=== PATIENT | male | born 1950 | race Hispanic/Latino ===

== ENCOUNTER 2018-11-30 02:40 | Inpatient (IN) | payer MEDICARE ==
[2018-11-30 02:49] VITALS: BMI 16.7
[2018-11-30 03:15] LABS: BASO # 0.1 K/uL (0.0-0.2); BASO % 0.4 % (0.0-2.0); EOS # 0.1 K/uL (0.0-0.7); EOS % 0.6 % (0.0-4.0); HEMOGLOBIN 12.2 g/dL (12.0-18.0); LYMPH % 5.7 % (20.0-40.0); MEAN CELL VOLUME 102.1 fl (80.0-94.0); MEAN CORPUSCULAR HEMOGLOBIN 33.3 pg (27.0-31.0); MEAN CORPUSCULAR HGB CONC 32.6 g/dL (33.0-37.0); MEAN PLATELET VOLUME 7.4 fl (7.2-11.7); MONO # 0.8 K/uL (0.0-0.8); MONO % 4.5 % (0.0-10.0); NEUT # 15.3 K/uL (1.8-7.0); NEUT % 88.8 % (50.0-75.0); PLATELET COUNT 419 K/uL (130-400); RBC 3.67 Mil/uL (4.40-5.90); RED CELL DISTRIBUTION WIDTH 16.3 % (11.5-14.5); WHITE BLOOD COUNT 17.3 K/uL (4.8-10.8)
[2018-11-30 03:17] LABS: INR 1.1; PROTHROMBIN TIME 12.6 Seconds (9.8-13.1)
[2018-11-30 03:19] LABS: PARTIAL THROMBOPLASTIN TIME 36.1 Seconds (25.6-37.1)
[2018-11-30 03:22] LABS: ALB/GLOB RATIO 1.2 (1.0-2.1); ALBUMIN 4.5 g/dL (3.5-5.0); CALCIUM 10.6 mg/dL (8.4-10.2)
[2018-11-30 03:33] LABS: TROPONIN I 0.017 ng/mL (0.00-0.120)
--- NOTE | 2018-11-30 03:39 | ED PDOC ---
HPI: SOB/CHF/COPD Time Seen by Provider: 11/30/18 02:47 Chief Complaint (Nursing): Respiratory Distress Chief Complaint (Provider): Respiratory Distress History Per: Patient History/Exam Limitations: no limitations Onset/Duration Of Symptoms: Sudden Onset Current Symptoms Are (Timing): Better Additional History Per: EMS Additional Complaint(s): 68 year old male with history of HTN and end stage renal disease who receives dialysis every Thursday, and Thursday presents to the ED complaining of acute shortness of breath at home prior to arrival. Patient was brought to the ED via EMS ALS transport who administered Lasix 20mg IVP and four sublingual nitroglycerine as well as placed on CPAP/BIPAP. Upon arrival, patient's symptoms improved and he is currently speaking full sentences in the ED. Patient is also due for dialysis today. PMD: Dr. Sanz Nephrologists: Dr. Zuniga Past Medical History Reviewed: Historical Data, Nursing Documentation, Vital Signs Vital Signs: Last Vital Signs Temp 97.9 F 11/30/18 03:07 Pulse 93 H 11/30/18 03:03 Resp 24 11/30/18 02:49 BP 129/75 11/30/18 02:49 Pulse Ox 98 11/30/18 02:49 - Medical History PMH: Diabetes, HTN, End Stage Renal Disease, Chronic Kidney Disease Denies: HIV - Family History Family History: States: Unknown Family Hx - Home Medications Home Medications: Ambulatory Orders Medication Instructions Recorded Lisinopril [Zestril] 30 mg PO DAILY 10/11/16 amLODIPine [Norvasc] 10 mg PO DAILY 10/11/16 hydrALAZINE [Apresoline] 50 mg PO TID 10/11/16 Brimonidine Tartrate/Timolol 07/22/17 [Combigan 0.2%-0.5% Eye Drops] Latanoprost 0.005% Opht [Xalatan 07/22/17 Opht] Metoprolol Succinate XL [Toprol XL] 25 mg PO DAILY #30 tab 07/28/17 - Allergies Allergies/Adverse Reactions: Allergies Allergy/AdvReac Type Severity Reaction Status Date / Time No Known Allergies Allergy Verified 11/30/18 02:49 Review of Systems ROS Statement: Except As Marked, All Systems Reviewed And Found Negative Constitutional: Negative for: Fever Cardiovascular: Negative for: Chest Pain Respiratory: Positive for: Shortness of Breath Gastrointestinal: Negative for: Nausea, Vomiting, Abdominal Pain, Diarrhea Physical Exam - Reviewed Nursing Documentation Reviewed: Yes Vital Signs Reviewed: Yes - Physical Exam Appears: Positive for: In Acute Distress (mild) Head Exam: Positive for: ATRAUMATIC, NORMAL INSPECTION, NORMOCEPHALIC Skin: Positive for: Normal Color, Warm, Dry. Negative for: Rash Eye Exam: Positive for: EOMI, Normal appearance, PERRL ENT: Positive for: Normal ENT Inspection Neck: Positive for: Painless ROM Cardiovascular/Chest: Positive for: JVD (1+) Respiratory: Positive for: Rales (bilateral) Gastrointestinal/Abdominal: Positive for: Normal Exam, Soft. Negative for: Tenderness Back: Positive for: Normal Inspection Extremity: Positive for: Normal ROM. Negative for: Tenderness, Pedal Edema, Deformity Neurological/Psych: Positive for: Awake, Alert, Normal Tone, Oriented (x3) - Laboratory Results Result Diagrams: 11/30/18 03:03 11/30/18 03:03 Lab Results: PT 12.6 Seconds (9.8-13.1) 11/30/18 03:03 INR 1.1 11/30/18 03:03 APTT 36.1 Seconds (25.6-37.1) 11/30/18 03:03 Troponin I 0.0170 ng/mL (0.00-0.120) 11/30/18 03:03 Total Bilirubin 0.7 mg/dl (0.2-1.3) 11/30/18 03:03 AST 24 U/L (17-59) 11/30/18 03:03 ALT 23 U/L (21-72) 11/30/18 03:03 Alkaline Phosphatase 63 U/L (38-126) 11/30/18 03:03 Total Protein 8.3 G/DL (6.3-8.2) H 11/30/18 03:03 Albumin 4.5 g/dL (3.5-5.0) 11/30/18 03:03 Globulin 3.8 gm/dL (2.2-3.9) 11/30/18 03:03 Albumin/Globulin Ratio 1.2 (1.0-2.1) 11/30/18 03:03 - ECG O2 Sat by Pulse Oximetry: 98 Pulse Ox Interpretation: Normal - Critical Care Total Time (In Min): 30 Medical Decision Making Medical Decision Making: Time: 256 Impression: 68 year old male presents with acute CHF and respiratory failure Plan: EKG CMP Troponin CBC w/ differential PTT Prothrombin time BIPAP/ CPAP setting adjustment Influenza A/B 5: Patient to be admitted for ESRD, acute CHF and respiratory failure under Dr. Sanz as well as Dr. Zuniga [id number]: Labs reviewed and revealed no clinically significant abnormalities with exception of leukocytes with left shift. CXR: bilateral pulmonary vascular congestion, cardiomegaly, as read by Dr. Thony dawson. Patient given IVPB Rocephin and Zithomax 500mg with possible underlying pneumonia. Patient diagnosed with CHF, pneumonia and respiratory failure. Scribe Attestation: Documented by Frederic Hammond, acting as a scribe for Cain Dill MD Provider Scribe Attestation: All medical record entries made by the Scribe were at my direction and personally dictated by me. I have reviewed the chart and agree that the record accurately reflects my personal performance of the history, physical exam, medical decision making, and the department course for this patient. I have also personally directed, reviewed, and agree with the discharge instructions and disposition. Disposition - Clinical Impression Clinical Impression: Respiratory failure, Chronic kidney disease requiring chronic dialysis, Pneumonia - Patient ED Disposition Is Patient to be Admitted: Yes Discussed With DrBrittany: Rafael Sanz (Dr Zuniga) - Disposition Disposition Time: 04:30 Condition: GUARDED - Pt Status Changed To: Hospital Disposition Of: Inpatient - Admit Certification Admit to Inpatient:: After my assessment, the patient will require hos pitalization for at least two midnights. This is because of the severity of symptoms shown, intensity of services needed, and/or the medical risk in this patient being treated as an outpatient.
[2018-11-30 04:23] LABS: BANDS 12 % (0-2); EOSINOPHIL 1 % (0-7); LYMPHOCYTE 7 % (20-50); METAMYELOCYTE 1 % (0-0); MONOCYTE 5 % (0-10); NEUTROPHIL 74 % (42-75); TOTAL CELLS COUNTED 100
[2018-11-30 04:25] LABS: ANISOCYTOSIS SLIGHT; PLATELET ESTIMATE SLIGHTLY INCREASED (NORMAL)
[2018-11-30] MEDS ORDERED: Azithromycin 500 MG in Sodium Chloride 0.9% 250 ML IVPB STA (04:25)
[2018-11-30 04:27] LABS: GIANT PLATELETS PRESENT; TOXIC GRANULATION PRESENT
[2018-11-30] MEDS ORDERED: cefTRIAXone (Rocephin) 1 gm Inj ONE (05:07)
--- NOTE | 2018-11-30 08:56 | CARD ---
APPROVED REPORT Date of service: 11/30/2018 EKG Measurement Heart [id number] <Conclusion> Normal sinus rhythm Possible Left atrial enlargement Incomplete left bundle branch block Left ventricular hypertrophy with repolarization abnormality Abnormal ECG
--- NOTE | 2018-11-30 11:38 | CP.PCM.CON ---
History of Present Illness - History of Present Illness History of Present Illness: 68 years of age male known to me with end-stage renal disease on maintenance hemodialysis 3 times a week Thursday. He came to the emergency room complaining of shortness of breath difficulty breathing and he required to be given Lasix and oxygen management in the emergency room and improved somewhat and he is scheduled for dialysis this morning as well because that is his regular day. His past medical history related to also long history of hypertension and chronic end-stage renal disease on dialysis and patient has secondary hyperparathyroidism and hyperphosphatemia. In summary past his past medical history End-stage renal disease on dialysis TTS Hyperphosphatemia and secondary hyperparathyroidism Medications reviewed Social history not contributory Review of Systems - Review of Systems Systems not reviewed;Unavailable: Respiratory Distress - Constitutional Constitutional: Anorexia, Chills - EENT Eyes: Blurred Vision Nose/Mouth/Throat: absent: Epistaxis - Cardiovascular Cardiovascular: Dyspnea, Orthopnea. absent: Acrocyanosis - Respiratory Respiratory: absent: Hemoptysis - Gastrointestinal Gastrointestinal: absent: Abdominal Pain, Coffee Ground Emesis, Vomiting - Genitourinary Genitourinary: Nocturia - Musculoskeletal Musculoskeletal: Muscle Weakness - Integumentary Integumentary: Dry Skin - Neurological Neurological: absent: Confusion, Focal Weakness, Headaches - Psychiatric Psychiatric: Depression. 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) Hx Cataracts: Yes - RENAL Hx Chronic Kidney Disease: Yes - ENDOCRINE/METABOLIC Hx Endocrine Disorders: Yes - HEMATOLOGICAL/ONCOLOGICAL Hx Human Immunodeficiency Virus (HIV): No - INTEGUMENTARY Hx Dermatological Problems: No - MUSCULOSKELETAL/RHEUMATOLOGICAL Hx Musculoskeletal Disorders: Yes Hx Falls: Yes (> 1 year ago) - GASTROINTESTINAL Hx Gastrointestinal Disorders: No - GENITOURINARY/GYNECOLOGICAL Hx Genitourinary Disorders: Yes Hx Hematuria: Yes Hx Urinary Tract Infection: Yes - PSYCHIATRIC Hx Psychophysiologic Disorder: No Hx Substance Use: No - SURGICAL HISTORY Hx Surgeries: Yes Hx Vascular Access Device: Yes Other/Comment: CATARACT SURGERY - ANESTHESIA Hx Anesthesia: Yes Hx Anesthesia Reactions: No Hx Malignant Hyperthermia: No Meds Allergies/Adverse Reactions: Allergies Allergy/AdvReac Type Severity Reaction Status Date / Time No Known Allergies Allergy Verified 11/30/18 02:49 - Medications Medications: Current Medications Amlodipine Besylate (Norvasc) 10 mg PO DAILY [facility] Hydralazine HCl (Apresoline) 50 mg PO TID [facility] Azithromycin 500 mg/ Sodium (Chloride) 250 mls @ 250 mls/hr IVPB DAILY [facility]; Protocol Ceftriaxone Sodium 1 gm/ (Sodium Chloride) 100 mls @ 100 mls/hr IVPB DAILY [facility]; Protocol Lisinopril (Zestril) 30 mg PO DAILY [facility] Metoprolol Succinate (Toprol Xl) 25 mg PO DAILY [facility] Physical Exam - Constitutional Additional comments: mild acute distress - Eye Exam Eye Exam: Conjunctival injection - ENT Exam ENT Exam: Mucous Membranes Moist - Neck Exam Neck exam: Negative for: Lymphadenopathy - Respiratory Exam Respiratory Exam: Rales, Rhonchi. absent: Chest Wall Tenderness - Cardiovascular Exam Cardiovascular Exam: absent: Gallop, JVD, Rubs - GI/Abdominal Exam GI & Abdominal Exam: absent: Guarding - Extremities Exam Extremities exam: Negative for: calf tenderness - Back Exam Back exam: absent: CVA tenderness (L), CVA tenderness (R) - Neurological Exam Neurological exam: Alert Results - Vital Signs Recent Vital Signs: Last Vital Signs Temp 97.4 F L 11/30/18 07:55 Pulse 70 11/30/18 07:58 Resp 18 11/30/18 07:55 BP 163/70 H 11/30/18 07:55 Pulse Ox 100 11/30/18 07:55 - Labs Result Diagrams: 11/30/18 03:03 11/30/18 03:03 Labs: Laboratory Results - last 24 hr 11/30/18 11/30/18 11/30/18 03:03 03:03 03:03 WBC 17.3 H D RBC 3.67 L Hgb 12.2 D Hct 37.4 MCV 102.1 H D MCH 33.3 H MCHC 32.6 L RDW 16.3 H Plt Count 419 H D MPV 7.4 Neut % (Auto) 88.8 H Lymph % (Auto) 5.7 L [place] % (Auto) 4.5 Eos % (Auto) 0.6 Baso % (Auto) 0.4 Neut # (Auto) 15.3 H Lymph # (Auto) 1.0 [place] # (Auto) 0.8 Eos # (Auto) 0.1 Baso # (Auto) 0.1 Neutrophils % (Manual) 74 Band Neutrophils % 12 H* Lymphocytes % (Manual) 7 L Monocytes % (Manual) 5 Eosinophils % (Manual) 1 Metamyelocytes % 1 H Toxic Granulation Present Platelet Estimate Slightly increased H Giant Platelets Present Anisocytosis (manual) Slight Macrocytosis (manual) Slight PT 12.6 INR 1.1 APTT 36.1 Sodium 137 Potassium 4.3 Chloride 95 L Carbon Dioxide 24 Anion Gap 22 H BUN 58 H Creatinine 5.7 H Est GFR ( Amer) 12 Est GFR (Non-Af Amer) 10 Random Glucose 231 H Calcium 10.6 H Total Bilirubin 0.7 AST 24 ALT 23 Alkaline Phosphatase 63 Troponin I 0.0170 Total Protein 8.3 H Albumin 4.5 Globulin 3.8 Albumin/Globulin Ratio 1.2 Influenza Typ A,B (EIA) 11/30/18 03:03 WBC RBC Hgb Hct MCV MCH MCHC RDW Plt Count MPV Neut % (Auto) Lymph % (Auto) [place] % (Auto) Eos % (Auto) Baso % (Auto) Neut # (Auto) Lymph # (Auto) [place] # (Auto) Eos # (Auto) Baso # (Auto) Neutrophils % (Manual) Band Neutrophils % Lymphocytes % (Manual) Monocytes % (Manual) Eosinophils % (Manual) Metamyelocytes % Toxic Granulation Platelet Estimate Giant Platelets Anisocytosis (manual) Macrocytosis (manual) PT INR APTT Sodium Potassium Chloride Carbon Dioxide Anion Gap BUN Creatinine Est GFR ( Amer) Est GFR (Non-Af Amer) Random Glucose Calcium Total Bilirubin AST ALT Alkaline Phosphatase Troponin I Total Protein Albumin Globulin Albumin/Globulin Ratio Influenza Typ A,B (EIA) Negative for flu a/b Assessment & Plan (1) Pneumonia Status: Acute (2) Chronic kidney disease requiring chronic dialysis Assessment and Plan: End-stage renal disease admitted with what appeared to be some volume overloaded and pneumonia. Pneumonia Leukocytosis Secondary hyperparathyroidism Hyperphosphatemia My recommendation Continue hemodialysis started earlier Phosphorus binder Calcitriol Antibiotics considering GFR Oxygen Renal diet Status: Chronic
--- NOTE | 2018-11-30 11:47 | CP.PCM.PN ---
Subjective - Date & Time of Evaluation Date of Evaluation: 11/30/18 Time of Evaluation: 11:43 - Subjective Subjective: dialysis note He was seen on hemodialysis now. Dialysis nurse at the bedside. I discussed the order with the dialysis nurse. Ultrafiltration approximately 2500 cc Potassium bath 2 mEq Patient receiving oxygen by mask And he started to show some improvement throughout the dialysis. Objective - Vital Signs/Intake and Output Vital Signs (last 24 hours): Temp Pulse Resp BP Pulse Ox 97.4 F L 70 18 163/70 H 100 11/30/18 07:55 11/30/18 07:58 11/30/18 07:55 11/30/18 07:55 11/30/18 07:55 - Medications Medications: Current Medications Amlodipine Besylate (Norvasc) 10 mg PO DAILY [facility] Hydralazine HCl (Apresoline) 50 mg PO TID [facility] Azithromycin 500 mg/ Sodium (Chloride) 250 mls @ 250 mls/hr IVPB DAILY [facility]; Protocol Ceftriaxone Sodium 1 gm/ (Sodium Chloride) 100 mls @ 100 mls/hr IVPB DAILY [facility]; Protocol Lisinopril (Zestril) 30 mg PO DAILY [facility] Metoprolol Succinate (Toprol Xl) 25 mg PO DAILY [facility] - Labs Labs: 11/30/18 03:03 11/30/18 03:03 PT 12.6 Seconds (9.8-13.1) 11/30/18 03:03 INR 1.1 11/30/18 03:03 APTT 36.1 Seconds (25.6-37.1) 11/30/18 03:03 - Constitutional Appears: No Acute Distress - Eye Exam Eye Exam: Conjunctival injection - ENT Exam ENT Exam: Mucous Membranes Moist - Neck Exam Neck Exam: absent: Lymphadenopathy - Respiratory Exam Respiratory Exam: absent: Chest Wall Tenderness - Cardiovascular Exam Cardiovascular Exam: absent: Gallop, JVD, Rubs - GI/Abdominal Exam GI & Abdominal Exam: Soft, Normal Bowel Sounds - Extremities Exam Extremities Exam: absent: Calf Tenderness - Back Exam Back Exam: absent: CVA tenderness (L), CVA tenderness (R) - Neurological Exam Neurological Exam: Alert - Psychiatric Exam Psychiatric exam: Normal Affect - Skin Skin Exam: absent: Cyanosis Assessment and Plan (1) Pneumonia Status: Acute (2) Chronic kidney disease requiring chronic dialysis Assessment & Plan: A/P End-stage renal disease seen on hemodialysis now Patient tolerating well the dialysis. I expect to improve post hemodialysis somewhat Pneumonia Volume overloaded Patient receiving antibiotics as per renal dose Continue phosphorus binders and calcitriol We will follow-up with serum phosphorus and PTH Status: Chronic
--- NOTE | 2018-11-30 15:16 | RAD ---
Date of service: 11/30/2018 HISTORY: Chest pain. Respiratory distress. COMPARISON: 07/22/2017 FINDINGS: LUNGS: Multifocal infiltrates primarily right upper lobe, left upper and left lower lobes. These are new findings. PLEURA: Small bilateral pleural effusions not seen previously. CARDIOVASCULAR: Atherosclerotic calcifications identified primarily aortic arch. No radiographic findings to suggest acute or significant cardiovascular disease. OSSEOUS STRUCTURES: No significant abnormalities. VISUALIZED UPPER ABDOMEN: Normal. OTHER FINDINGS: None. IMPRESSION: New and bilateral multifocal infiltrates with associated small pleural effusions.
[2018-11-30 16:56] LABS: HEPATITIS B SURFACE AG Negative (NEGATIVE)
[2018-11-30 17:01] LABS: HEPATITIS B CORE AB NEGATIVE (NEGATIVE)
[2018-11-30] MEDS: Metoprolol Succinate 25 mg XL Tab PO SCH (17:02)
[2018-11-30] MEDS: Azithromycin 500 MG in Sodium Chloride 0.9% 250 ML IVPB SCH (17:03)
[2018-11-30 18:33] LABS: HEPATITIS C ANTIBODY NEGATIVE (NEGATIVE)
[2018-12-01 05:53] LABS: BASO % 0.4 % (0.0-2.0); EOS # 0.1 K/uL (0.0-0.7); EOS % 1.5 % (0.0-4.0); LYMPH # 0.7 K/uL (1.0-4.3); LYMPH % 10.8 % (20.0-40.0); MEAN CELL VOLUME 102.4 fl (80.0-94.0); MEAN CORPUSCULAR HEMOGLOBIN 34.5 pg (27.0-31.0); MEAN CORPUSCULAR HGB CONC 33.7 g/dL (33.0-37.0); MEAN PLATELET VOLUME 7.4 fl (7.2-11.7); MONO # 0.7 K/uL (0.0-0.8); MONO % 10.8 % (0.0-10.0); NEUT # 5.1 K/uL (1.8-7.0); NEUT % 76.5 % (50.0-75.0); NRBC % 0.1 % (0.0-0.0); RBC 3.19 Mil/uL (4.40-5.90); RED CELL DISTRIBUTION WIDTH 16.2 % (11.5-14.5)
[2018-12-01 06:06] LABS: WHITE BLOOD COUNT 6.6 K/uL (4.8-10.8)
[2018-12-01 06:27] LABS: ALB/GLOB RATIO 1.2 (1.0-2.1); ALBUMIN 4.1 g/dL (3.5-5.0); CALCIUM 9.5 mg/dL (8.4-10.2)
[2018-12-01] MEDS ORDERED: Sodium Chloride 3% for Inhalation 4 ML VIAL.NEB IH PRN (08:43)
[2018-12-01] MEDS: Metoprolol Succinate 25 mg XL Tab PO SCH (08:49)
[2018-12-01] MEDS ORDERED: Sod Polystyrene Sulf 15 gm/60 ml Susp PO ONE (11:46)
--- NOTE | 2018-12-01 11:49 | CP.PCM.PN ---
Subjective - Date & Time of Evaluation Date of Evaluation: 12/01/18 Time of Evaluation: 11:48 - Subjective Subjective: Patient awake and conscious feeling much better. Less shortness of breath Appetite is good Objective - Vital Signs/Intake and Output Vital Signs (last 24 hours): Temp Pulse Resp BP Pulse Ox 98.3 F 80 18 172/68 H 100 12/01/18 08:00 12/01/18 08:51 12/01/18 08:00 12/01/18 08:51 12/01/18 08:00 - Medications Medications: Current Medications Amlodipine Besylate (Norvasc) 10 mg PO DAILY [facility] Last Admin: 12/01/18 08:50 Dose: 10 mg Heparin Sodium (Porcine) (Heparin) 5,000 units SC Q12 [facility]; Protocol Hydralazine HCl (Apresoline) 50 mg PO TID [facility] Last Admin: 12/01/18 08:46 Dose: 50 mg Azithromycin 500 mg/ Sodium (Chloride) 250 mls @ 250 mls/hr IVPB DAILY [facility]; Protocol Last Admin: 11/30/18 17:03 Dose: 250 mls/hr Ceftriaxone Sodium 1 gm/ (Sodium Chloride) 100 mls @ 100 mls/hr IVPB DAILY [facility]; Protocol Last Admin: 12/01/18 08:45 Dose: 100 mls/hr Lisinopril (Zestril) 30 mg PO DAILY [facility] Last Admin: 12/01/18 08:51 Dose: 30 mg Metoprolol Succinate (Toprol Xl) 25 mg PO DAILY [facility] Last Admin: 12/01/18 08:49 Dose: 25 mg Sodium Polystyrene Sulfonate (Kayexalate Susp) 30 gm PO ONCE ONE Stop: 12/01/18 11:47 - Labs Labs: 12/01/18 04:35 12/01/18 04:35 PT 12.6 Seconds (9.8-13.1) 11/30/18 03:03 INR 1.1 11/30/18 03:03 APTT 36.1 Seconds (25.6-37.1) 11/30/18 03:03 - Constitutional Appears: No Acute Distress - Eye Exam Eye Exam: Conjunctival injection - ENT Exam ENT Exam: Mucous Membranes Moist - Respiratory Exam Respiratory Exam: Rhonchi, NORMAL BREATHING PATTERN - Cardiovascular Exam Cardiovascular Exam: absent: Gallop, JVD, Rubs - GI/Abdominal Exam GI & Abdominal Exam: Soft, Normal Bowel Sounds - Extremities Exam Extremities Exam: absent: Calf Tenderness - Back Exam Back Exam: absent: CVA tenderness (L), CVA tenderness (R) - Neurological Exam Neurological Exam: Alert - Psychiatric Exam Psychiatric exam: Normal Affect - Skin Skin Exam: absent: Cyanosis Assessment and Plan (1) Pneumonia Status: Acute (2) Chronic kidney disease requiring chronic dialysis Assessment & Plan: End-stage renal disease admitted with what appeared to be some volume overloaded and pneumonia. Pneumonia Leukocytosis Secondary hyperparathyroidism Hyperphosphatemia My recommendation Continue hemodialysis TTS Phosphorus binder Calcitriol Antibiotics considering GFR Oxygen pt improving Status: Chronic
[2018-12-01] MEDS: Azithromycin 500 MG in Sodium Chloride 0.9% 250 ML IVPB SCH (13:41)
--- NOTE | 2018-12-01 14:27 | CT ---
Date of service: 12/01/2018 PROCEDURE: CT Chest without contrast HISTORY: cough, sob COMPARISON: Chest portable 11/30/2018 TECHNIQUE: Contiguous axial images were obtained through the chest without intravenous contrast enhancement. Sagittal and coronal reconstructions were performed. Radiation dose: Total exam DLP = 483.43 mGy-cm. This CT exam was performed using one or more of the following dose reduction techniques: Automated exposure control, adjustment of the mA and/or kV according to patient size, and/or use of iterative reconstruction technique. FINDINGS: LUNGS: The previously referenced portable chest x-ray infiltrate in the right upper lobe corresponds to right upper lobe fissural fluid measuring 4.7 x 3.2 cm on coronal series 601, image 94 this is 5.2 cm in transverse dimension on axial series 2, image 35. This can't is contiguous with right superolateral pleural thickening some additional loculated fluid here. No dense consolidation seen. There is a areas of post pleural thickening and subpleural minimal atelectatic changes. Here this also at the lung base some a punctate calcifications seen bordering the sub pleural thickening atelectasis. No gross central endobronchial lesions noted. A larger left pleural effusion with left infrahilar consolidation inferred in part as some atelectasis is present. [place] sagittal series 602, image 102. Some infiltrate here is also a consideration. Underlying mass here cannot be excluded. Most of the findings appear to represent compressive atelectasis from the large right pleural effusion. Central tracheobronchial airway pathology noted. Elements of more peripheral mucoid impaction cannot be excluded. The size of the left pleural effusion with some inferred loculation extends up to the phone was to left lung apex on sagittal series 602, image 102. In the lingular there there are some bandlike subsegmental atelectasis changes as well. Continue to the left anterior-lateral pleural surface. MEDIASTINUM: The ascending aorta is approximately 3.8 cm per the descend 2.2 cm coronary artery calcifications stents are present. Cardiomegaly. No pericardial fusion. Main pulmonary artery unremarkable. No vascular congestion. No lymphadenopathy. There is presence of aortic atherosclerotic calcification and mural plaque on cross sectional studies. PLEURA: Bilateral pleural effusions fissural and loculation inferred. The left pleural effusion is much larger than the right.. No pneumothorax. Atelectasis with or without infiltrate left lung base likely secondary to compressive atelectasis given the large left pleural effusion. BONES: Inferior thoraco lumbar level spondylosis. No gross fracture seen. No destructive lesion. Facet spondylosis. Lumbar level spinal stenosis also probable. UPPER ABDOMEN: Moderate stool retention. OTHER FINDINGS: Bilateral renal cortical atrophy. Apparently patient is on renal dialysis. Small bilateral renal hypodensities renal cysts inferred. Prominent parapelvic fat. IMPRESSION: Bilateral pleural effusions with loculation. Left pleural effusion is larger. Associated compressive left lung base atelectasis is inferred. Additional pathology blending with this consolidation for example infiltrate is not excluded. Concomitant underlying mass here cannot be excluded either. Compressive atelectasis is favored. Other findings as above.
[2018-12-01 14:54] LABS: MYCOPLASMA PNEUMONIAE IGM NEGATIVE (NEGATIVE)
[2018-12-02] MEDS: Azithromycin 500 MG in Sodium Chloride 0.9% 250 ML IVPB SCH (08:49)
[2018-12-02 08:50] VITALS: O2SAT 100
--- NOTE | 2018-12-02 10:38 | CP.PCM.PN ---
Subjective - Date & Time of Evaluation Date of Evaluation: 12/02/18 Time of Evaluation: 11:10 - Subjective Subjective: feeling better eating well. vital stable Objective - Vital Signs/Intake and Output Vital Signs (last 24 hours): Temp Pulse Resp BP Pulse Ox 98.5 F 63 18 177/69 H 100 12/02/18 08:00 12/02/18 09:00 12/02/18 08:00 12/02/18 08:46 12/02/18 08:00 Intake and Output: 12/02/18 12/02/18 06:59 18:59 Intake Total 350 Balance 350 - Medications Medications: Current Medications Amlodipine Besylate (Norvasc) 10 mg PO DAILY [facility] Last Admin: 12/01/18 08:50 Dose: 10 mg Heparin Sodium (Porcine) (Heparin) 5,000 units SC Q12 [facility]; Protocol Last Admin: 12/02/18 08:46 Dose: 5,000 units Hydralazine HCl (Apresoline) 50 mg PO TID [facility] Last Admin: 12/02/18 08:46 Dose: 50 mg Azithromycin 500 mg/ Sodium (Chloride) 250 mls @ 250 mls/hr IVPB DAILY [facility]; Protocol Last Admin: 12/02/18 08:49 Dose: 250 mls/hr Ceftriaxone Sodium 1 gm/ (Sodium Chloride) 100 mls @ 100 mls/hr IVPB DAILY [facility]; Protocol Last Admin: 12/02/18 08:47 Dose: 100 mls/hr Lisinopril (Zestril) 30 mg PO DAILY [facility] Last Admin: 12/01/18 08:51 Dose: 30 mg Metoprolol Succinate (Toprol Xl) 25 mg PO DAILY [facility] Last Admin: 12/01/18 08:49 Dose: 25 mg - Labs Labs: 12/01/18 04:35 12/01/18 04:35 PT 12.6 Seconds (9.8-13.1) 11/30/18 03:03 INR 1.1 11/30/18 03:03 APTT 36.1 Seconds (25.6-37.1) 11/30/18 03:03 - Constitutional Appears: No Acute Distress - Eye Exam Eye Exam: Conjunctival injection - ENT Exam ENT Exam: Mucous Membranes Moist - Neck Exam Neck Exam: absent: Lymphadenopathy - Respiratory Exam Respiratory Exam: absent: Chest Wall Tenderness - GI/Abdominal Exam GI & Abdominal Exam: Soft, Normal Bowel Sounds - Extremities Exam Extremities Exam: absent: Calf Tenderness - Back Exam Back Exam: absent: CVA tenderness (L), CVA tenderness (R) - Neurological Exam Neurological Exam: Alert - Psychiatric Exam Psychiatric exam: Normal Affect - Skin Skin Exam: absent: Cyanosis Assessment and Plan (1) Pneumonia Status: Acute (2) Chronic kidney disease requiring chronic dialysis Assessment & Plan: Assessment & Plan: End-stage renal disease admitted with what appeared to be some volume overloaded and pneumonia. Pneumonia Leukocytosis Secondary hyperparathyroidism Hyperphosphatemia My recommendation Continue hemodialysis TTS, patient scheduled to have dialysis shortly Phosphorus binder Calcitriol Antibiotics considering GFR Oxygen Status: Chronic
[2018-12-02] MEDS ORDERED: Lidocaine Hydrochloride 1% 10 ML ONE (11:10)
--- NOTE | 2018-12-02 11:41 | PCM.SURG1 ---
Surgeon's Initial Post Op Note - Surgeon's Notes Surgeon: Mark Sibley MD Commercial Crabber: NONE Type of Anesthesia: Local Pre-Operative Diagnosis: Left pleural effusion, shortness of breath Operative Findings: US showed large left pleural effusion Post-Operative Diagnosis: left pleural effusion Operation Performed: US guided left thoracentesis Specimen/Specimens Removed: 1300 cc of straw colored fluid Estimated Blood Loss: EBL {In ML}: 0 Blood Products Given: N/A Drains Used: No Drains Post-Op Condition: Fair Date of Surgery/Procedure: 12/02/18 Time of Surgery/Procedure: 11:40
[2018-12-02 11:48] LABS: BODY FLUID TYPE PLEURAL/THORACENTESI
[2018-12-02 12:25] LABS: GLUCOSE,BODY FLUID 137 mg/dL (NONE ESTABLISHED)
--- NOTE | 2018-12-02 13:15 | RAD ---
Date of service: 12/02/2018 PROCEDURE: CHEST RADIOGRAPH, 1 VIEW HISTORY: Status post left thoracentesis, procedure performed December 02, 2018. COMPARISON: 11/30/2018. FINDINGS: LUNGS: Improved aeration left lower lobe. Residual infiltrates right lung. PLEURA: Decrease in left pleural effusion. No visible pneumothorax. CARDIOVASCULAR: No aortic atherosclerotic calcification present. Normal. OSSEOUS STRUCTURES: No significant abnormalities. VISUALIZED UPPER ABDOMEN: Normal. OTHER FINDINGS: None. IMPRESSION: No adverse findings/no pneumothorax following left thoracentesis. Commensurate improved aeration left lower lobe.
[2018-12-02 13:19] LABS: BF GROSS APPEARANCE CLEAR (CLEAR); BODY FLUID MONO/MACROPHAGE 46 % (0-0); BODY FLUID TOTAL COUNT 100 (0-0)
--- NOTE | 2018-12-02 16:04 | CP.PCM.PN ---
Subjective - Date & Time of Evaluation Date of Evaluation: 12/02/18 Time of Evaluation: 11:30 - Subjective Subjective: patient away for thoracentesis chart reviewed discussed with house staff obtain echo monitor vitals monitor labs monitor fluid analysis rest of plan as ordered Objective - Vital Signs/Intake and Output Vital Signs (last 24 hours): Temp Pulse Resp BP Pulse Ox 98.3 F 66 18 168/67 H 100 12/02/18 12:00 12/02/18 12:55 12/02/18 12:00 12/02/18 12:55 12/02/18 12:00 Intake and Output: 12/02/18 12/02/18 06:59 18:59 Intake Total 350 Balance 350 - Medications Medications: Current Medications Amlodipine Besylate (Norvasc) 10 mg PO DAILY [facility] Last Admin: 12/01/18 08:50 Dose: 10 mg Heparin Sodium (Porcine) (Heparin) 5,000 units SC Q12 [facility]; Protocol Last Admin: 12/02/18 08:46 Dose: 5,000 units Hydralazine HCl (Apresoline) 50 mg PO TID [facility] Last Admin: 12/02/18 12:55 Dose: Not Given Azithromycin 500 mg/ Sodium (Chloride) 250 mls @ 250 mls/hr IVPB DAILY [facility]; Protocol Last Admin: 12/02/18 08:49 Dose: 250 mls/hr Ceftriaxone Sodium 1 gm/ (Sodium Chloride) 100 mls @ 100 mls/hr IVPB DAILY [facility]; Protocol Last Admin: 12/02/18 08:47 Dose: 100 mls/hr Lisinopril (Zestril) 30 mg PO DAILY [facility] Last Admin: 12/01/18 08:51 Dose: 30 mg Metoprolol Succinate (Toprol Xl) 25 mg PO DAILY [facility] Last Admin: 12/01/18 08:49 Dose: 25 mg Sevelamer HCl (Renagel) 1,600 mg PO TID [facility] Last Admin: 12/02/18 12:57 Dose: 1,600 mg - Labs Labs: 12/01/18 04:35 12/01/18 04:35 PT 12.6 Seconds (9.8-13.1) 11/30/18 03:03 INR 1.1 11/30/18 03:03 APTT 36.1 Seconds (25.6-37.1) 11/30/18 03:03 Assessment and Plan (1) Pleural effusion Status: Acute
[2018-12-02] MEDS: Metoprolol Succinate 25 mg XL Tab PO SCH (16:59)
--- NOTE | 2018-12-02 17:15 | CP.PCM.HP ---
History of Present Illness - History of Present Illness History of Present Illness: This is a 68 y/o male admitted for progressive increase in SOB despite regular hemodialysis. He was given Lasix and seem to have responded. At the ER he had to be placed on BIpap . Initial labs showed n bilateral infiltrates and effusions. 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) Hx Cataracts: Yes - RENAL Hx Chronic Kidney Disease: Yes - ENDOCRINE/METABOLIC Hx Endocrine Disorders: Yes - HEMATOLOGICAL/ONCOLOGICAL Hx Human Immunodeficiency Virus (HIV): No - INTEGUMENTARY Hx Dermatological Problems: No - MUSCULOSKELETAL/RHEUMATOLOGICAL Hx Musculoskeletal Disorders: Yes Hx Falls: Yes (> 1 year ago) - GASTROINTESTINAL Hx Gastrointestinal Disorders: No - GENITOURINARY/GYNECOLOGICAL Hx Genitourinary Disorders: Yes Hx Hematuria: Yes Hx Urinary Tract Infection: Yes - PSYCHIATRIC Hx Psychophysiologic Disorder: No Hx Substance Use: No - SURGICAL HISTORY Hx Surgeries: Yes Hx Vascular Access Device: Yes Other/Comment: CATARACT SURGERY - ANESTHESIA Hx Anesthesia: Yes Hx Anesthesia Reactions: No Hx Malignant Hyperthermia: No Meds Allergies/Adverse Reactions: Allergies Allergy/AdvReac Type Severity Reaction Status Date / Time No Known Allergies Allergy Verified 11/30/18 02:49 Results - Vital Signs Recent Vital Signs: Last Vital Signs Temp 99.0 F 12/02/18 16:42 Pulse 61 12/02/18 17:00 Resp 16 12/02/18 16:42 BP 162/62 H 12/02/18 17:00 Pulse Ox 100 12/02/18 16:42 - Labs Result Diagrams: 12/01/18 04:35 12/01/18 04:35 Labs: Laboratory Results - last 24 hr 11/30/18 12/02/18 12/02/18 11:00 11:00 11:00 Phosphorus Fluid Source Pleural/thoracentesi Fluid Appearance Clear Fluid WBC 218.0 Fluid RBC 406.0 H Fluid Tot Cell Count 100 H Fluid Neutrophils 6.0 H Fluid Lymphocytes 48.0 H Fld Monocyte/Macrophag 46 H Fluid Glucose 137 Fluid LDH 278 Fluid Comment Yellow Hep Bs Antibody, Quant 519 03/14/19 13:00 Phosphorus 6.8 H Fluid Source Fluid Appearance Fluid WBC Fluid RBC Fluid Tot Cell Count Fluid Neutrophils Fluid Lymphocytes Fld Monocyte/Macrophag Fluid Glucose Fluid LDH Fluid Comment Hep Bs Antibody, Quant
--- NOTE | 2018-12-02 19:03 | CARD ---
APPROVED REPORT Date of service: 12/02/2018 EXAM: Two-dimensional and M-mode echocardiogram with Doppler and color Doppler. Other Information Quality : GoodRhythm : NSR INDICATION Pleural Effusion 2D DIMENSIONS IVSd1.05 (0.7-1.1cm)LVDd5.67 (3.9-5.9cm) LVOT Diameter2.63 (1.8-2.4cm)PWd0.90 (0.7-1.1cm) IVSs1.49 (0.8-1.2cm)LVDs3.49 (2.5-4.0cm) FS (%) 38.5 %PWs1.34 (0.8-1.2cm) M-Mode DIMENSIONS Left Atrium (MM)5.29 (2.5-4.0cm)IVSd1.19 (0.7-1.1cm) Aortic Root3.67 (2.2-3.7cm)LVDd7.61 (4.0-5.6cm) Aortic Cusp Exc.1.89 (1.5-2.0cm)PWd1.06 (0.7-1.1cm) IVSs1.65 cmFS (%) 33 % LVDs5.13 (2.0-3.8cm)PWs1.52 cm Aortic Valve AoV Peak Khdeyzvt996.2cm/sAoV VTI43.4cmAO Peak GR.14mmHg LVOT Peak Eewbtayw350.7cm/sLVOT VTI24.25cmAO Mean GR.8mmHg ABDIEL (VMAX)1.62wj5RIE (VTI)1.92cm2 Mitral Valve MV E Qvrxpwlp62.3cm/sMV DECEL KWIL409wfOV A Mazunwaa66.6cm/s MV UUA82jqU/A ratio1.2MVA (PHT)4.58cm2 TDI Lateral E' Peak V12.87cm/sMedial E' Peak V7.17cm/sE/Lateral E'7.4 E/Medial E'13.3 Tricuspid Valve TR Peak Oeibsrml515kc/sRAP CHDQJXHU22qvArDR Peak Gr.40mmHg WCAP61pdWg LEFT VENTRICLE The left ventricle is normal size. There is normal left ventricular wall thickness. The left ventricular systolic function is normal. The estimated ejection fraction is 55-60% No regional wall motion abnormalities noted.. Transmitral Doppler flow pattern is Grade II-pseudonormal filling dynamics. No left ventricle thrombus noted on this study. There is no ventricular septal defect visualized. There is no left ventricular aneurysm. There is no mass noted in the left ventricle. RIGHT VENTRICLE The right ventricle is normal size. There is normal right ventricular wall thickness. The right ventricular systolic function is normal. ATRIA The left atrium is severely dilated. The right atrium size is normal. The interatrial septum is intact with no evidence for an atrial septal defect. AORTIC VALVE The aortic valve is normal in structure. No aortic regurgitation is present. There is no aortic valvular stenosis. There is no aortic valvular vegetation. MITRAL VALVE The mitral valve is normal in structure. There is no evidence of mitral valve prolapse. There is no mitral valve stenosis. There is mild mitral valve regurgitation noted. TRICUSPID VALVE The tricuspid valve is normal in structure. There is mild tricuspid valve regurgitation noted. RVSP is calculated at 46 mm Hg. There is no tricuspid valve prolapse or vegetation. There is no tricuspid valve stenosis. PULMONIC VALVE The pulmonary valve is normal in structure. There is no pulmonic valvular regurgitation. There is no pulmonic valvular stenosis. GREAT VESSELS The aortic root is normal in size. The ascending aorta is normal in size. The pulmonary artery is normal. The IVC is normal in size and collapses >50% with inspiration. PERICARDIAL EFFUSION There is no pericardial effusion. There is no pleural effusion. <Conclusion> The estimated ejection fraction is 55-60% Transmitral Doppler flow pattern is Grade II-pseudonormal filling dynamics. The left atrium is severely dilated. There is mild mitral valve regurgitation noted. There is mild tricuspid valve regurgitation noted. RVSP is calculated at 46 mm Hg. The IVC is normal in size and collapses >50% with inspiration.
[2018-12-02 19:19] LABS: COLD AGGLUTININ NEGATIVE (NEGATIVE)
--- NOTE | 2018-12-02 19:55 | CP.PCM.PN ---
Subjective - Date & Time of Evaluation Date of Evaluation: 12/01/18 Time of Evaluation: 10:00 - Subjective Subjective: Pt seen and assessed at bedside. Currently reports an improvement in respiratory status, breathing better. CXR done yesterday showed bilateral infiltrates and small pleural effusions. Currently on Rocephin and Azithromycin IV. Subjective Review of Systems: Reviewed and no additional remarkable complaints except fatigue. Objective Vital Signs Stable Appears: Non-toxic, No Acute Distress. Head Exam: NORMAL INSPECTION, normocephalic. Eye Exam: Normal appearance, EOMI. Respiratory Exam: NORMAL BREATHING PATTERN, breath sounds diminished. Cardiovascular Exam: +S1, +S2. RRR GI & Abdominal Exam: Soft, non-tender, non-distended. Neurological Exam: Alert, Awake, Oriented x3. Psychiatric exam: Normal Affect, Normal Mood Skin Exam: Normal, Warm, Dry. Assessment/Impression/Plan: 1.) Pleural Effusion/Respiratory Failure -Breathing improving; currently on Rocephin and Zithromax. -No dyspnea at rest, for CT chest today. -BIPAP at night time. -continue hemodialysis schedule (). -Strict BP control. -Consults input appreciated. -Continue current treatment. Objective - Vital Signs/Intake and Output Vital Signs (last 24 hours): Temp Pulse Resp BP Pulse Ox 98.2 F 59 L 16 154/66 H 100 12/02/18 19:46 12/02/18 19:46 12/02/18 19:46 12/02/18 19:46 12/02/18 19:46 Intake and Output: 12/02/18 12/03/18 18:59 06:59 Intake Total 350 Balance 350 - Medications Medications: Current Medications Amlodipine Besylate (Norvasc) 10 mg PO DAILY [facility] Last Admin: 12/02/18 16:58 Dose: Not Given Heparin Sodium (Porcine) (Heparin) 5,000 units SC Q12 [facility]; Protocol Last Admin: 12/02/18 08:46 Dose: 5,000 units Hydralazine HCl (Apresoline) 50 mg PO TID [facility] Last Admin: 12/02/18 16:58 Dose: 50 mg Azithromycin 500 mg/ Sodium (Chloride) 250 mls @ 250 mls/hr IVPB DAILY [facility]; Protocol Last Admin: 12/02/18 08:49 Dose: 250 mls/hr Ceftriaxone Sodium 1 gm/ (Sodium Chloride) 100 mls @ 100 mls/hr IVPB DAILY [facility]; Protocol Last Admin: 12/02/18 08:47 Dose: 100 mls/hr Lisinopril (Zestril) 30 mg PO DAILY [facility] Last Admin: 12/02/18 17:00 Dose: Not Given Metoprolol Succinate (Toprol Xl) 25 mg PO DAILY [facility] Last Admin: 12/02/18 16:59 Dose: Not Given Sevelamer HCl (Renagel) 1,600 mg PO TID [facility] Last Admin: 12/02/18 16:59 Dose: Not Given - Labs Labs: 12/01/18 04:35 12/01/18 04:35 PT 12.6 Seconds (9.8-13.1) 11/30/18 03:03 INR 1.1 11/30/18 03:03 APTT 36.1 Seconds (25.6-37.1) 11/30/18 03:03 Assessment and Plan (1) Pleural effusion Status: Acute (2) Respiratory failure Status: Acute
[2018-12-03 06:26] VITALS: TEMP 98.3
[2018-12-03] MEDS: Azithromycin 500 MG in Sodium Chloride 0.9% 250 ML IVPB SCH (09:46)
[2018-12-03] MEDS: Metoprolol Succinate 25 mg XL Tab PO SCH (09:47)
[2018-12-03 09:56] VITALS: BP 162/56; PULSE 53; RESP 20
[2018-12-03 10:10] LABS: MEAN CELL VOLUME 102.8 fl (80.0-94.0); MEAN CORPUSCULAR HEMOGLOBIN 33.4 pg (27.0-31.0); MEAN CORPUSCULAR HGB CONC 32.5 g/dL (33.0-37.0); RBC 2.98 Mil/uL (4.40-5.90); RED CELL DISTRIBUTION WIDTH 15.9 % (11.5-14.5); WHITE BLOOD COUNT 6.2 K/uL (4.8-10.8)
[2018-12-03 10:19] LABS: CALCIUM 9.2 mg/dL (8.4-10.2)
--- NOTE | 2018-12-03 11:15 | CT ---
PROCEDURE: Date of procedure: 12/02/2018 Procedure: 1. Ultrasound-guided left thoracentesis, CPT 03794 Medications: 6cc 1% Lidocaine HISTORY: Left pleural effusion, shortness of breath TECHNIQUE: Following informed consent ,the Patients' left chest was marked. Procedure time-out was called, and the patient was placed in the sitting position and limited ultrasound showed a large left effusion. The patient's left back was prepped and draped in the usual sterile fashion. After the skin was anesthetized with lidocaine, a drainage catheter was advanced under ultrasound guidance into the pleural space. Ultrasound-guided thoracentesis was performed. A total of 1300 cubic centimeters of straw-colored fluid removed without complication. A Xeroform dressing was applied. IMPRESSION: Ultrasound guided left thoracentesis. There were no immediate complications.
--- NOTE | 2018-12-03 11:53 | CP.PCM.PCO ---
Assessment & Plan - Assessment and Plan (Free Text) Assessment: pt. seen and examined awake, alert, sitting up in bed, feels well, denies sob, cp, fever or chills lungs CTA b/l s/p L Thoracentesis; f/u cxray noted 1.3 L removed pt. cleared for discharge to [facility] today Cont. Rocephin 1gm iv daily x 7 days cont. zithromax po cont. PT/ cont. HD T,Th,Sat above d/w - Functional Status Prior to Admission: max assist with ADL Current Status: Ambulated 8 ft with max assist Impairment Code: .
--- NOTE | 2018-12-03 12:57 | CP.PCM.PN ---
Subjective - Date & Time of Evaluation Date of Evaluation: 12/03/18 Time of Evaluation: 09:00 - Subjective Subjective: Patient sitting up in bed he feels more comfortable using nasal cannula oxygen. Vital signs noted to be stable. No nausea or vomiting. Objective - Vital Signs/Intake and Output Vital Signs (last 24 hours): Temp Pulse Resp BP Pulse Ox 98.3 F 53 L 20 162/56 H 100 12/03/18 09:55 12/03/18 09:55 12/03/18 09:55 12/03/18 09:55 12/03/18 09:55 - Medications Medications: Current Medications Amlodipine Besylate (Norvasc) 10 mg PO DAILY [facility] Last Admin: 12/03/18 09:44 Dose: 10 mg Heparin Sodium (Porcine) (Heparin) 5,000 units SC Q12 [facility]; Protocol Last Admin: 12/03/18 09:43 Dose: 5,000 units Hydralazine HCl (Apresoline) 50 mg PO TID [facility] Last Admin: 12/03/18 09:43 Dose: 50 mg Azithromycin 500 mg/ Sodium (Chloride) 250 mls @ 250 mls/hr IVPB DAILY [facility]; Protocol Last Admin: 12/03/18 09:46 Dose: 250 mls/hr Ceftriaxone Sodium 1 gm/ (Sodium Chloride) 100 mls @ 100 mls/hr IVPB DAILY [facility]; Protocol Last Admin: 12/03/18 09:45 Dose: 100 mls/hr Lisinopril (Zestril) 30 mg PO DAILY [facility] Last Admin: 12/03/18 09:48 Dose: 30 mg Metoprolol Succinate (Toprol Xl) 25 mg PO DAILY [facility] Last Admin: 12/03/18 09:47 Dose: 25 mg Sevelamer HCl (Renagel) 1,600 mg PO TID [facility] Last Admin: 12/03/18 09:44 Dose: 1,600 mg - Labs Labs: 12/03/18 09:30 12/03/18 09:30 PT 12.6 Seconds (9.8-13.1) 11/30/18 03:03 INR 1.1 11/30/18 03:03 APTT 36.1 Seconds (25.6-37.1) 11/30/18 03:03 - Constitutional Appears: No Acute Distress - Eye Exam Eye Exam: Conjunctival injection - ENT Exam ENT Exam: Mucous Membranes Moist - Neck Exam Neck Exam: absent: Lymphadenopathy - Respiratory Exam Respiratory Exam: NORMAL BREATHING PATTERN. absent: Chest Wall Tenderness - GI/Abdominal Exam GI & Abdominal Exam: Soft, Normal Bowel Sounds - Extremities Exam Extremities Exam: absent: Calf Tenderness - Back Exam Back Exam: absent: CVA tenderness (L), CVA tenderness (R) - Neurological Exam Neurological Exam: Alert - Psychiatric Exam Psychiatric exam: Normal Affect - Skin Skin Exam: absent: Cyanosis Assessment and Plan (1) Pneumonia Status: Acute (2) Chronic kidney disease requiring chronic dialysis Assessment & Plan: Assessment & Plan: End-stage renal disease admitted with what appeared to be some volume overloaded and pneumonia. Pneumonia Leukocytosis trending down Secondary hyperparathyroidism Hyperphosphatemia anemia My recommendation Continue hemodialysis TTS, Status post left thoracocentesis with removal of 1300 cc on December 02, 2018 EPO to be added for the anemia hemoglobin dropping down. PTH still pending Phosphorus binder Calcitriol Antibiotics considering GFR Oxygen Status: Chronic
[2018-12-04] MEDS ORDERED: Epoetin Alfa 20000 UNIT/ML (RENAL DOSE) IV SCH (09:00)
--- NOTE | 2018-12-08 11:30 | PQF ---
PROVIDER RESPONSE TEXT: Underweight REVIEWER QUERY TEXT: Nutritional Deficiency Clarification There are clinical indicators and dietary orders noted in the Medical Record regarding nutritional st atus. Please provide a nutritional diagnosis if able to further specify. OR: Disagree OR: Unable to determine OR: Other explanation of clinical finsing RD consult: BMI:16.7 Underweight 5ft 8 in 110 lbs; monitor wt., labs, intake, skin: Moderate cons istent CHO heart healthy renal dialysis diet; nepro 8 ounces 1 per day The patient's Clinical Indicators include: --- Query created by: Tania Vanessa on 12/03/2018 8:03 AM Electronically signed by: Armando Buck 12/08/2018 11:28 AM
--- NOTE | 2018-12-08 11:31 | PQF ---
PROVIDER RESPONSE TEXT: Provider was unable to determine a response for this query. REVIEWER QUERY TEXT: Respiratory Failure Acuity and Type Acute Respiratory Failure is documented in the Medical Record. Please specify the type if in agreemen t and if known: Such as: -- Acute respiratory failure - With hypoxia - With hypercapnia --OR: Disagree -- Other, please specify ER presents to the ED complaining of acute shortness of breath at home prior to arrival. Patient was brought to the ED via EMS ALS transport who administered Lasix 20mg IVP and four sublingual nitroglyc erine as well as placed on CPAP/BIPAP. Upon arrival, patient's symptoms improved and he is currently speaking full sentences in the ED. Patient is also due for dialysis today. BIPAP/ CPAP setting adjustment -- to be admitted for ESRD, acute CHF and respiratory failure 0430: given IVPB Rocephin and Zithomax 500mg with possible underlying pneumonia. Clinical Impression.: Respiratory failure, Chronic kidney disease requiring chronic dialysis, Pneumo evaristo The patient's Clinical Indicators include: --- Query created by: Tania Vanessa on 12/03/2018 8:09 AM Electronically signed by: Armando Buck 12/08/2018 11:28 AM
--- NOTE | 2018-12-08 11:31 | PQF ---
PROVIDER RESPONSE TEXT: Provider was unable to determine a response for this query. REVIEWER QUERY TEXT: CHF Acuity and Type Congestive Heart Failure is documented in the Medical Record. Please document the type and acuity (in cludes probable or suspected) if in agreement versus CHF ruled out Such as: Type: -- Systolic -- Diastolic -- Combined -- Other, please specify Acuity: -- Acute -- Chronic -- Acute on chronic -- Other, please specify 11/30 CXR:New and bilateral multifocal infiltrates with associated small pleural effusions. ER:PE: Respiratory: Positive for: Rales (bilateral BIPAP/ CPAP setting adjustment -- to be admitted for ESRD, acute CHF and respiratory failure 0430: given IVPB Rocephin and Zithomax 500mg with possible underlying pneumonia. Patient diagnosed w ith CHF, pneumonia and respiratory failure Clinical Impression .: Respiratory failure, Chronic kidney disease requiring chronic dialysis, Pneum onia Admission order: Admitting dx.: Respiratory Failure, CHF, ESRD 12/02: Surgical Post-Op:Lt. pleural effusion,SOB Op Findings: US showed large lt. pleural effusion Post-Op Dx: left pleural effusion Op Performed: US guided left thoracentesis Specimens Removed: 1300 cc of straw colored fluid The patient's Clinical Indicators include: ---- Query created by: Tania Vanessa 12/03/2018 8:10 AM Electronically signed by: Armando Buck 12/08/2018 11:28 AM
--- NOTE | 2018-12-08 11:31 | PQF ---
PROVIDER RESPONSE TEXT: SACRAL PRESSURE ULCER PRESENT ON ADMISSION REVIEWER QUERY TEXT: Pressure Ulcer Type Pressure ulcer is documented in the Medical Record. Please specify the: A. location B.present on admission status and C. stage: if in agreement POA status of each pressure ulcer: -- Not present on admission -- Present on admission -- Other -- Clinically unable to determine -- Unknown 12/01 Wound automotive parts advisor: PI (pressure injury) on sacrum: partial thickness wound Stage of each pressure ulcer (National Pressure Ulcer Advisory Panel definitions): -- Stage I: Intact skin with non-blanchable redness of a localized area -- Stage II: Partial thickness skin loss involving dermis with a shallow open ulcer or an open serum -filled blister -- Stage III: Full thickness skin loss involving damage or necrosis of subcutaneous tissue -- Stage IV: Full thickness skin loss with exposed bone, tendon or muscle -- Unstageable: Full thickness tissue loss in which the base of the ulcer is covered by slough and/o r eschar in the wound bed The patient's Clinical Indicators include: ---- Query created by: Tania Vanessa on 12/03/2018 8:08 AM Electronically signed by: Armando Buck 12/08/2018 11:28 AM
--- NOTE | 2018-12-08 11:31 | PQF ---
PROVIDER RESPONSE TEXT: SACRAL PRESSURE ULCER PRESENT ON ADMISSION REVIEWER QUERY TEXT: Pressure Ulcer Type Pressure ulcer is documented in the Medical Record. Please specify the: A. location B.present on admission status and C. stage: if in agreement POA status of each pressure ulcer: -- Not present on admission -- Present on admission -- Other -- Clinically unable to determine -- Unknown 12/01 Wound car rental sales assistant: PI (pressure injury) on sacrum: partial thickness wound Stage of each pressure ulcer (National Pressure Ulcer Advisory Panel definitions): -- Stage I: Intact skin with non-blanchable redness of a localized area -- Stage II: Partial thickness skin loss involving dermis with a shallow open ulcer or an open serum -filled blister -- Stage III: Full thickness skin loss involving damage or necrosis of subcutaneous tissue -- Stage IV: Full thickness skin loss with exposed bone, tendon or muscle -- Unstageable: Full thickness tissue loss in which the base of the ulcer is covered by slough and/o r eschar in the wound bed The patient's Clinical Indicators include: ---- Query created by: Tania Vanessa on 12/03/2018 8:09 AM Electronically signed by: Armando Buck 12/08/2018 11:28 AM
== END 2018-12-03 15:45 | DRG 291 ==
LOC: H.ER 02:40 → H.ERHOLD 03:05 → H.TEL 06:16
PROVIDERS: ADMIT Family Medicine; ATTEND Family Medicine
PROC: 5A1D70Z Performance of Urinary Filtration, Intermittent, Less than 6 Hours Per Day (ICD-10-PCS; 2018-11-30)
PROC: 5A09457 Assistance with Respiratory Ventilation, 24-96 Consecutive Hours, Continuous Positive Airway Pressure (ICD-10-PCS; 2018-11-30)
PROC: 0W9B30Z Drainage of Left Pleural Cavity with Drainage Device, Percutaneous Approach (ICD-10-PCS; principal; 2018-12-02)
PROC: 5A1D70Z Performance of Urinary Filtration, Intermittent, Less than 6 Hours Per Day (ICD-10-PCS; 2018-12-02)
DX: I13.2 Hypertensive heart and chronic kidney disease with heart failure and with stage 5 chronic kidney disease, or end stage renal disease (principal); J18.9 Pneumonia, unspecified organism; J96.00 Acute respiratory failure, unspecified whether with hypoxia or hypercapnia; N18.6 End stage renal disease; J90 Pleural effusion, not elsewhere classified; N25.81 Secondary hyperparathyroidism of renal origin; J44.0 Chronic obstructive pulmonary disease with (acute) lower respiratory infection; Z68.1 Body mass index [BMI] 19.9 or less, adult; E11.22 Type 2 diabetes mellitus with diabetic chronic kidney disease; L89.152 Pressure ulcer of sacral region, stage 2; R63.6 Underweight; I50.9 Heart failure, unspecified; D64.9 Anemia, unspecified; E83.39 Other disorders of phosphorus metabolism; Z99.2 Dependence on renal dialysis; D72.829 Elevated white blood cell count, unspecified; H54.7 Unspecified visual loss; Z87.440 Personal history of urinary (tract) infections